=== PATIENT | female | born 1975 | race Hispanic/Latino ===

== ENCOUNTER 2025-02-15 19:27 | Emergency (ER) | payer OTHER ==
[~2025-02-15] VITALS: Ht 157.5 cm; Wt 89.8 kg
[~2025-02-15 19:27] MED LIST: AMLODIPINE BESYL5 MG PO; ZYRTEC10 MG PO
[2025-02-15 19:30] VITALS: PULSE 85; RESP 18; TEMP 98.3
[2025-02-15 20:26] LABS: BASOPHILS % 0.6 % (0.0-1.0); EOSINOPHILS % 1.0 % (0.0-6.0); LYMPHOCYTES % 34.3 % (18.0-39.1); MONOCYTES % 6.3 % (4.4-11.3); NEUTROPHILS % 57.4 % (38.7-80.0); RED CELL DISTRIBUTION WIDTH 12.6 % (11.7-14.4)
[2025-02-15 20:41] LABS: EST GLOMERULAR FILTRATION RATE 102.0 ML/MIN (>=60)
[2025-02-15 20:48] LABS: AMPHETAMINES SCREEN,URINE NEGATIVE (NEGATIVE); CANNABINOIDS SCREEN,URINE NEGATIVE (NEGATIVE); COCAINE SCREEN,URINE NEGATIVE (NEGATIVE); METHADONE SCREEN, URINE NEGATIVE (NEGATIVE); OPIATES SCREEN,URINE NEGATIVE (NEGATIVE)
[2025-02-15 21:01] VITALS: BP 146/74; O2SAT 100
== END 2025-02-15 21:00 | disposition home or self-care (01) ==
LOC: ER 19:32
DX: I16.0 Hypertensive urgency (principal); R07.89 Other chest pain; I10 Essential (primary) hypertension; F41.9 Anxiety disorder, unspecified; R94.31 Abnormal electrocardiogram [ECG] [EKG]
CPT/HCPCS: 36415; 71045; 80053; 80307; 82550; 83690; 83880; 84484; 85025; 93005; 99284